=== PATIENT | male | born 1985 | race American Indian/Alaskan Native ===

== ENCOUNTER 2022-04-09 20:59 | Emergency (ER) | payer SELFPAY | END 2022-04-09 21:45 | LOC: JD.ED 20:59 | DX: F10.920 Alcohol use, unspecified with intoxication, uncomplicated (principal); I25.2 Old myocardial infarction; E11.9 Type 2 diabetes mellitus without complications; K21.9 Gastro-esophageal reflux disease without esophagitis | CPT/HCPCS: 99282; 99284 ==